=== PATIENT | female | born 1995 | race Hispanic/Latino ===

== ENCOUNTER → 2018-10-29 | Outpatient (CLI) | payer OTHER | END | disposition home or self-care (01) | LOC: RAH 09:03 | PROVIDERS: ATTEND Internal Medicine Gastroenterology | DX: R10.10 Upper abdominal pain, unspecified (principal) | CPT/HCPCS: 74240 ==

== ENCOUNTER 2019-07-17 01:19 | Observation (INO) | payer BC, MEDICAID ==
[~2019-07-17] VITALS: Ht 157.5 cm; Wt 111.1 kg
[2019-07-17] MEDS ORDERED: LACTATED RINGERS 1000ML 1,000 ML IV SCH (01:30)
[2019-07-17] MEDS ORDERED: PREN1TAB26 PO (01:48)
[2019-07-17 02:06] LABS: APPEARANCE,URINE Clear (CLEAR); BILIRUBIN,URINE Negative (NEGATIVE); COLOR,URINE Yellow (YELLOW); GLUCOSE, URINE (UA) Negative (NEGATIVE); KETONES,URINE Trace mg/dL (NEGATIVE); LEUKOCYTE ESTERASE ,URINE Moderate (NEGATIVE); NITRATE,URINE Negative (NEGATIVE); OCCULT BLOOD,URINE Negative (NEGATIVE); PROTEIN,URINE Negative (NEGATIVE); UROBILINOGEN,URINE 0.2 mg/dL (0.2-1.0)
[2019-07-17] MEDS ORDERED: LACTATED RINGERS 1000ML 1,000 ML IV ONE ×2 (02:12→03:04)
[2019-07-17 02:32] VITALS: BP 118/59
[2019-07-17 03:10] LABS: BACTERIA,URINE Few /HPF (None Seen); RBC,URINE 0-1 /HPF (0-1)
[2019-07-17] MEDS ORDERED: ONDANSETRON HCL 4 MG/2 ML VIAL ONE (03:28)
[2019-07-17] MEDS ORDERED: CEFTRIAXONE SODIUM 2 GM VIAL IVPB SCH (03:30)
[2019-07-17] MEDS ORDERED: ONDANSETRON HCL 4 MG/2 ML VIAL IVP SCH (03:30)
[2019-07-17] MEDS ORDERED: CEFTRIAXONE SODIUM 1 GM ONE (04:03)
== END 2019-07-17 05:45 | disposition home or self-care (01) ==
LOC: EDH 01:19 → LDH 01:20
PROVIDERS: ADMIT Obstetrics & Gynecology; ATTEND Obstetrics & Gynecology
DX: O26.893 Other specified pregnancy related conditions, third trimester (principal); O99.333 Smoking (tobacco) complicating pregnancy, third trimester; R42 Dizziness and giddiness; R19.7 Diarrhea, unspecified; R10.9 Unspecified abdominal pain; Z3A.37 37 weeks gestation of pregnancy; Z98.890 Other specified postprocedural states
CPT/HCPCS: 81001; 96360; 96361; 99283; G0378 ×4; J0696 ×2; J2405; J7120 ×2